=== PATIENT | male | born 1985 | race Caucasian/White ===

== ENCOUNTER 2019-12-06 09:51 | Emergency (ER) | payer OTHER ==
[2019-12-06 10:01] VITALS: TEMP 97.7; BMI 33.0
[2019-12-06] MEDS ORDERED: LIDOCAINE VISCOUS 2% ORAL/TOP 20 ML UNIT-DOSE CUP MM ONE (10:39)
[2019-12-06] MEDS ORDERED: MAG HYDROX/AL HYDROX/SIMETH 30 ML UNIT-DOSE CUP PO ONE (10:39)
[2019-12-06] MEDS ORDERED: HYOSCYAMINE SULFATE 0.125 MG *ODT PO ONE (10:39)
[2019-12-06] MEDS ORDERED: LIDOCAINE VISCOUS 2% ORAL/TOP 20 ML UNIT-DOSE CUP ONE (10:51)
[2019-12-06] MEDS ORDERED: MAG HYDROX/AL HYDROX/SIMETH 30 ML UNIT-DOSE CUP ONE (10:52)
[2019-12-06 10:59] LABS: BASO % 0.5 % (0-2.0); EOS % 0.8 % (0-4.5); HEMATOCRIT 47.5 % (35.4-49); HEMOGLOBIN 16.3 GM/dL (11.7-16.9); LYMPH % 23.6 % (8-40); MCH 27.6 pg (25.7-33.7); MCHC 34.2 g/dl (32.0-35.9); MEAN CELL VOLUME 80.6 fl (80-96); MEAN PLT VOLUME 7.2 fl (7.5-11.1); MONO % 6.1 % (3.8-10.2); PLATELET COUNT 333 K/MM3 (134-434); RDW 14.6 % (11.9-15.9); WHITE BLOOD COUNT 10.2 K/mm3 (4.0-10.0)
[2019-12-06 11:28] LABS: ALBUMIN 3.6 g/dl (3.4-5.0); ALK PHOS 86 U/L (45-117); ANION GAP 7 MMOL/L (8-16); BILIRUBIN,TOTAL 0.4 mg/dL (0.2-1); BLOOD UREA NITROGEN 13.5 mg/dL (7-18); CALCIUM 9.3 mg/dL (8.5-10.1); CHLORIDE 107 mmol/L (98-107); CO2 25 mmol/L (21-32); CREATININE 0.9 mg/dL (0.55-1.3); GLUCOSE,RANDOM 124 mg/dL (74-106); POTASSIUM 4.3 mmol/L (3.5-5.1); SGOT/AST 21 U/L (15-37); SGPT/ALT 32 U/L (13-61); SODIUM 139 mmol/L (136-145); TOT PROT 7.3 g/dl (6.4-8.2)
--- NOTE | 2019-12-06 12:16 | PDOC ---
History of Present Illness - General History Source: Patient Exam Limitations: No Limitations - History of Present Illness Initial Comments: 12/06/19 12:16 34-year-old male presents to ED with intermittent epigastric pain rating to his mid chest worsened at night causing him difficulty sleeping. Patient states was told he had acid reflux from the emergency department a few years ago and was given medication. Patient states he ran out and never followed up with GI since symptoms resolved. Patient states discomfort is sharp with intermittent burning and squeezing sensation. Patient does smoke cigarettes daily and frequently eats fast food. Patient denies history of diabetes and hypertension but does have history of asthma. Patient has no complaints of palpitations, nausea, dizziness, sweating, or weakness Is this a multiple visit Asthma Patient?: No Timing/Duration: intermittent Severity: moderate Associated Symptoms: reports: chest pain <Jewels Barron - Last Filed: 12/06/19 12:25> <Marisel Lopez - Last Filed: 12/06/19 12:39> - General Chief Complaint: Pain Stated Complaint: PAIN Time Seen by Provider: 12/06/19 10:20 Past History - Travel Traveled outside of the country in the last 30 days: No Close contact w/someone who was outside of country & ill: No - Past Medical History Asthma: Yes COPD: No - Psycho Social/Smoking Cessation Hx Smoking History: Current every day smoker Information on smoking cessation initiated: Yes Patient Lives Alone: No Lives with/in: spouse/SO <Jewels Barron - Last Filed: 12/06/19 12:25> <Marisel Lopez - Last Filed: 12/06/19 12:39> - Past Medical History Allergies/Adverse Reactions: Allergies Allergy/AdvReac Type Severity Reaction Status Date / Time No Known Allergies Allergy Verified 12/06/19 09:55 Home Medications: Ambulatory Orders Albuterol Sulfate Inhaler - [Ventolin HFA Inhaler -] 1 - 2 inh PO QID PRN #1 inhaler 12/06/19 Albuterol Sulfate Inhaler - [Ventolin Hfa Inhaler -] 1 - 2 inh PO Q4H 12/06/19 Omeprazole 20 mg PO DAILY #60 tablet. 12/06/19 Pantoprazole Sodium [Protonix] 40 mg PO DAILY #30 tablet. 12/06/19 Review of Systems - Review of Systems Able to Perform ROS?: No Is the patient limited Thai proficient: No Constitutional: No: Symptoms Reported HEENTM: No: Symptoms Reported Respiratory: No: Symptoms reported Cardiac (ROS): Yes: Chest Pain ABD/GI: Yes: Indigestion : No: Symptoms Reported Musculoskeletal: No: Symptoms Reported Integumentary: No: Symptoms Reported Neurological: No: Symptoms reported Psychiatric: No: Anxiety Hematologic/Lymphatic: No: Symptoms Reported <AndersonJewels - Last Filed: 12/06/19 12:25> *Physical Exam - Vital Signs Last Vital Signs Temp Pulse Resp BP Pulse Ox 97.7 F 88 20 111/67 98 12/06/19 09:58 12/06/19 09:58 12/06/19 09:58 12/06/19 09:58 12/06/19 09:58 - Physical Exam General Appearance: Yes: Nourished, Appropriately Dressed. No: Apparent Distress HEENT: positive: CORINA, TMs Normal, Pharynx Normal. negative: Pale Conjunctivae Neck: positive: Supple Respiratory/Chest: positive: Lungs Clear, Normal Breath Sounds. negative: Respiratory Distress, Accessory Muscle Use Cardiovascular: positive: Regular Rhythm, Regular Rate. negative: Murmur Gastrointestinal/Abdominal: positive: Normal Bowel Sounds, Soft, Tenderness ( Epigastric). negative: Distended, Guarding, Rebound Musculoskeletal: negative: CVA Tenderness Integumentary: positive: Normal Color, Warm, Moist Neurologic: positive: Motor Strength 5/5 (Ambulatory) <AndersonJewels - Last Filed: 12/06/19 12:25> - Vital Signs Last Vital Signs Temp Pulse Resp BP Pulse Ox 97.7 F 88 20 111/67 98 12/06/19 09:58 12/06/19 09:58 12/06/19 09:58 12/06/19 09:58 12/06/19 09:58 <Marisel Lopez - Last Filed: 12/06/19 12:39> Heart Score/ECG Review - ECG Intrepretation Rhythm: Regular Rhythm (Normal sinus rhythm 83, no ST elevation or depression) <Jewels Barron - Last Filed: 12/06/19 12:25> ED Treatment Course - LABORATORY CBC & Chemistry Diagram: 12/06/19 10:00 12/06/19 10:00 - ADDITIONAL ORDERS Additional order review: Laboratory Results 12/06/19 10:00 Sodium 139 Potassium 4.3 Chloride 107 Carbon Dioxide 25 Anion Gap 7 L BUN 13.5 Creatinine 0.9 Est GFR (CKD-EPI)AfAm 127.80 Est GFR (CKD-EPI)NonAf 110.27 Random Glucose 124 H Calcium 9.3 Total Bilirubin 0.4 AST 21 ALT 32 Alkaline Phosphatase 86 Creatine Kinase 139 Troponin I < 0.02 Total Protein 7.3 Albumin 3.6 12/06/19 10:00 RBC 5.90 H MCV 80.6 MCHC 34.2 RDW 14.6 MPV 7.2 L Neutrophils % 69.0 Lymphocytes % 23.6 Monocytes % 6.1 Eosinophils % 0.8 Basophils % 0.5 - RADIOLOGY Radiology Studies Ordered: Category Date Time Status CHEST PA & LAT [RAD] Stat Radiology 12/06/19 10:21 Completed - Medications Given in the ED: ED Medications Discontinued Medications Generic Name Dose Route Start Last Admin Trade Name Freq PRN Reason Stop Dose Admin Al Hydroxide/Mg Hydroxide 30 ml 12/06/19 10:39 12/06/19 10:45 Mylanta Oral Suspension - PO 12/06/19 10:40 30 ml ONCE ONE Administration Hyoscyamine Sulfate 0.125 mg 12/06/19 10:39 12/06/19 11:23 Levsin Odt - PO 12/06/19 10:40 0.125 mg ONCE ONE Administration Lidocaine HCl 15 ml 12/06/19 10:39 12/06/19 10:45 Xylocaine 2% Viscous Oral - MM 12/06/19 10:40 15 ml ONCE ONE Administration <Jewels Barron - Last Filed: 12/06/19 12:25> - LABORATORY CBC & Chemistry Diagram: 12/06/19 10:00 12/06/19 10:00 - ADDITIONAL ORDERS Additional order review: Laboratory Results 12/06/19 10:00 Sodium 139 Potassium 4.3 Chloride 107 Carbon Dioxide 25 Anion Gap 7 L BUN 13.5 Creatinine 0.9 Est GFR (CKD-EPI)AfAm 127.80 Est GFR (CKD-EPI)NonAf 110.27 Random Glucose 124 H Calcium 9.3 Total Bilirubin 0.4 AST 21 ALT 32 Alkaline Phosphatase 86 Creatine Kinase 139 Troponin I < 0.02 Total Protein 7.3 Albumin 3.6 12/06/19 10:00 RBC 5.90 H MCV 80.6 MCHC 34.2 RDW 14.6 MPV 7.2 L Neutrophils % 69.0 Lymphocytes % 23.6 Monocytes % 6.1 Eosinophils % 0.8 Basophils % 0.5 - Medications Given in the ED: ED Medications Discontinued Medications Generic Name Dose Route Start Last Admin Trade Name Jazmín PRN Reason Stop Dose Admin Al Hydroxide/Mg Hydroxide 30 ml 12/06/19 10:39 12/06/19 10:45 Mylanta Oral Suspension - PO 12/06/19 10:40 30 ml ONCE ONE Administration Hyoscyamine Sulfate 0.125 mg 12/06/19 10:39 12/06/19 11:23 Levsin Odt - PO 12/06/19 10:40 0.125 mg ONCE ONE Administration Lidocaine HCl 15 ml 12/06/19 10:39 12/06/19 10:45 Xylocaine 2% Viscous Oral - MM 12/06/19 10:40 15 ml ONCE ONE Administration <Marisel Lopez - Last Filed: 12/06/19 12:39> Medical Decision Making - Medical Decision Making 12/06/19 11:19 Chief complaint: Patient with epigastric and mid chest pain for the past 4 days worsened at night causing difficulty sleeping. Patient states had history of acid reflux a few years ago and was prescribed an antacid which exam: He cannot recall. But since symptoms resolved , he did not follow-up with GI. Exam: Epigastric tenderness noted on exam no reproducible chest pain., Vital signs stable Plan: EKG done in triage chest x-ray added labs, and GI cocktail 12/06/19 12:22 Laboratory Tests 12/06/19 12/06/19 10:00 10:00 WBC 10.2 H Hgb 16.3 Hct 47.5 MCV 80.6 MPV 7.2 L Sodium 139 Potassium 4.3 Chloride 107 Carbon Dioxide 25 Anion Gap 7 L BUN 13.5 Creatinine 0.9 Est GFR (CKD-EPI)AfAm 127.80 Est GFR (CKD-EPI)NonAf 110.27 Random Glucose 124 H Calcium 9.3 Total Bilirubin 0.4 AST 21 ALT 32 Alkaline Phosphatase 86 Creatine Kinase 139 Troponin I < 0.02 Total Protein 7.3 Albumin 3.6 Chest x-ray shows no acute pathology. Patient states feeling much better. Will discharge Protonix along with follow-up to GI <Jewels Barron - Last Filed: 12/06/19 12:25> - Medical Decision Making The patient was seen and evaluated in conjunction with midlevel provider under my direct supervision, ancillary studies were reviewed. I agree with the plan as outlined with [employer]IL [employer]ER Anderson. HPI, workup/dispo as outlined. VS reviewed, wnl. cxr clear.labs and trop neg. analgesia, anticipate discharge, pcp followup, return precautions 12/06/19 12:38 <Marisel Lopez - Last Filed: 12/06/19 12:39> Discharge - Discharge Information Problems reviewed: Yes <Jewels Barron - Last Filed: 12/06/19 12:25> - Admission No <Marisel Lopez - Last Filed: 12/06/19 12:39> - Discharge Information Clinical Impression/Diagnosis: Epigastric pain Condition: Improved Disposition: HOME - Additional Discharge Information Prescriptions: Albuterol Sulfate Inhaler - [Ventolin HFA Inhaler -] 1 - 2 inh PO QID PRN #1 inhaler PRN Reason: Wheezing Omeprazole 20 mg PO DAILY #60 tablet.dr Pantoprazole Sodium [Protonix] 40 mg PO DAILY #30 tablet.dr - Follow up/Referral Referrals: Gabriel Mccracken MD [Primary Care Provider] - Wale Connors MD [Staff Physician] - - Patient Discharge Instructions Patient Printed Discharge Instructions: DI for Gastroesophageal Reflux Disease (GERD) Additional Instructions: please avoid spicy greasy and acidy food. Try to avoid smoking as this will exacerbate your symptoms. Drink plenty of water, eat set up after and sit up for at least 1/2-hour after eating. Take Protonix as prescribed. Follow-up with GI. - Post Discharge Activity
--- NOTE | 2019-12-06 12:20 | EKG ---
Test Reason : Blood Pressure : / mmHG Vent. Rate : 082 BPM Atrial Rate : 082 BPM P-R Int : 174 ms QRS Dur : 100 ms QT Int : 358 ms P-R-T Axes : 041 105 071 degrees QTc Int : 418 ms NORMAL SINUS RHYTHM RIGHTWARD AXIS NO PREVIOUS ECGS AVAILABLE Confirmed by SERGEI PARIS MD ([id number]) on 12/06/2019 12:20:26 PM Referred By: Confirmed By:SERGEI PARIS MD
[2019-12-06 13:04] VITALS: BP 120/78; PULSE 78
== END 2019-12-06 13:08 | disposition home or self-care (01) ==
LOC: JER 09:51
DX: K21.9 Gastro-esophageal reflux disease without esophagitis (principal); R10.13 Epigastric pain
CPT/HCPCS: 36415; 71046-TC-FY; 80053; 82550; 84484; 85025; 93005; 93010; 99285-25